=== PATIENT | male | born 1945 | race Caucasian/White ===

== ENCOUNTER 2020-08-14 15:15 | Inpatient (IN) | payer MEDICARE ==
[2020-08-14 16:27] LABS: #Basophils 0.1 10x3/uL (0.0-0.2); #Eosinphils 0.3 10x3/uL (0.0-0.5); #Monocytes 1.9 10x3/uL (0.0-1.1); #Neutrophils 9.1 10x3/uL (1.5-8.4); %Basophils 0.6 % (0.0-2.0); %Eosinophils 1.9 % (0.0-6.0); %Lymphocytes 19.4 % (18.0-47.0); %Monocytes 13.5 % (0.0-10.0); %Neutrophils 62.9 % (40.0-75.0); Hemoglobin 16.6 g/dL (13.5-17.5); Mean Corpuscular HGB CONC 32.7 g/dL (32.0-36.0); Mean Corpuscular Hemoglobin 31.5 pg (27.0-33.0); Mean Corpuscular Volume 96.2 fl (81.2-95.1); Mean Platelet Volume 10.6 fl (7.4-10.4); Platelet Count 283 10x3/uL (150-450); RBC Distribution Width 13.1 % (11.5-14.5); Red Blood Cell (RBC) Count 5.27 10x6/uL (4.32-5.72); White Blood Cell (WBC) Count 14.4 10x3/uL (3.5-10.5)
[2020-08-14 16:33] LABS: ALT (SGPT) 30 U/L (8-55); AST (SGOT) 20 U/L (5-34); Albumin 4.1 g/dL (3.4-4.8); Alkaline Phosphatase 63 U/L (40-110); Anion Gap 15 mmol/L (10-20); BUN (Urea Nitrogen) 44 mg/dL (8.4-25.7); Bilirubin, Total 1.6 mg/dL (0.2-1.2); Calc. Creatinine Clearance 0 mL/min (70-130); Calcium 9.2 mg/dL (7.8-10.44); Carbon Dioxide 26 mmol/L (23-31); Chloride 100 mmol/L (98-107); Globulin 2.4 g/dL (2.4-3.5); Glucose 82 mg/dL (83-110); Potassium 4.6 mmol/L (3.5-5.1); Protein, Total 6.5 g/dL (5.8-8.1); Sodium 136 mmol/L (136-145)
[2020-08-14 17:21] LABS: CKMB 3.8 ng/mL (0-6.6)
[2020-08-14 17:23] LABS: Bilirubin Neg (Negative); Blood, Urine Negative (Negative); Clarity Clear (Clear); Glucose, Urine (Dipstick) Normal (Negative); Ketone, Urine Negative (Negative); Leukocyte Negative (Negative); Nitrite Negative (Negative); Protein, Urine (Dipstick) Negative (Neg-Trace); Specific Gravity, Urine 1.015 (1.002-1.036); Urobilinogen Normal mg/dL (Less than 2)
[2020-08-14] MEDS ORDERED: Nitroglycerin 2% Ointment 1 INCH/1 GM Packet ONE (18:04)
[2020-08-14] MEDS ORDERED: Aspirin Chewable 81 MG TAB ONE (18:04)
[2020-08-14] MEDS ORDERED: Calcium Carbonate 500 MG ChewTAB PO PRN (20:26)
[2020-08-14] MEDS ORDERED: Ondansetron PF 4 MG/2 ML Vial IVP PRN (20:26)
[2020-08-14] MEDS ORDERED: Senokot S 8.6-50 MG TAB PO PRN (20:26)
[2020-08-14] MEDS ORDERED: Guaifenesin DM 100-10/5 ML UDCUP PO PRN (20:26)
[2020-08-14] MEDS ORDERED: Acetaminophen 325 MG TAB PO PRN (20:26)
[2020-08-14] MEDS ORDERED: ALPRAZolam 0.5 MG TAB PO PRN (20:30)
[2020-08-14] MEDS ORDERED: Sodium Chloride 0.9% 500 ML IV SCH (20:30)
[2020-08-14] MEDS ORDERED: tiZANidine HCl 4 MG TAB PO PRN (20:31)
[2020-08-14 23:00] LABS: CKMB 3.2 ng/mL (0-6.6)
[2020-08-15 04:30] VITALS: BMI 24.0
[2020-08-15 05:39] LABS: Anion Gap 15 mmol/L (10-20); BUN (Urea Nitrogen) 46 mg/dL (8.4-25.7); Calc. Creatinine Clearance 37 mL/min (70-130); Calcium 8.7 mg/dL (7.8-10.44); Carbon Dioxide 26 mmol/L (23-31); Cardiac Risk 3.6 (Less than 4.5); Chloride 103 mmol/L (98-107); Cholesterol 144 mg/dl (< 200 Desired); Glucose 104 mg/dL (83-110); HDL Cholesterol 40 mg/dL (>60 Neg Risk); LDL Cholesterol, Calculated 64 mg/dL; Potassium 5.3 mmol/L (3.5-5.1); Sodium 139 mmol/L (136-145); Triglycerides 201 mg/dL (Less than 150)
[2020-08-15 05:51] LABS: #Basophils 0.1 10x3/uL (0.0-0.2); #Eosinphils 0.2 10x3/uL (0.0-0.5); #Monocytes 1.6 10x3/uL (0.0-1.1); #Neutrophils 7.8 10x3/uL (1.5-8.4); %Basophils 0.7 % (0.0-2.0); %Eosinophils 1.9 % (0.0-6.0); %Lymphocytes 21.9 % (18.0-47.0); %Monocytes 12.3 % (0.0-10.0); %Neutrophils 61.4 % (40.0-75.0); Hemoglobin 15.8 g/dL (13.5-17.5); Mean Corpuscular HGB CONC 32.8 g/dL (32.0-36.0); Mean Corpuscular Hemoglobin 31.7 pg (27.0-33.0); Mean Corpuscular Volume 96.8 fl (81.2-95.1); Mean Platelet Volume 10.4 fl (7.4-10.4); Platelet Count 271 10x3/uL (150-450); RBC Distribution Width 13.2 % (11.5-14.5); Red Blood Cell (RBC) Count 4.98 10x6/uL (4.32-5.72); White Blood Cell (WBC) Count 12.8 10x3/uL (3.5-10.5)
[2020-08-15] MEDS: Atorvastatin Calcium 20 MG TAB PO SCH ×2 (05:54→21:21)
[2020-08-15 05:59] LABS: CKMB 2.8 ng/mL (0-6.6)
[2020-08-15] MEDS ORDERED: Loratadine 10 MG TAB PO PRN (07:44)
[2020-08-15] MEDS ORDERED: Loperamide HCl 2 MG CAP PO PRN (07:44)
[2020-08-15] MEDS ORDERED: GUAIFENESIN SF SOLN 200 MG/10 ML UDCUP PO PRN (07:44)
[2020-08-15] MEDS ORDERED: hydrALAZINE 20 MG/ML VIAL SLOW IVP PRN (07:44)
[2020-08-15] MEDS ORDERED: HYDROcodone/Acetaminophen 5/325 mg Tablet PO PRN (07:44)
[2020-08-15] MEDS ORDERED: Sodium Chloride 0.65% Nasal 44 ML BOT EA NARE PRN (07:44)
[2020-08-15] MEDS ORDERED: Cepastat Lozenges 1 LOZ PO PRN (07:44)
[2020-08-15] MEDS ORDERED: Benzonatate 100 MG CAP PO PRN (07:44)
[2020-08-15] MEDS: Carvedilol 6.25 MG TAB PO SCH ×3 (08:09→17:20)
[2020-08-15] MEDS: Enoxaparin Sodium 40 MG/0.4 ML SYRINGE SC SCH (08:10)
[2020-08-15] MEDS: Aspirin 81 mg Enteric Coated Tablet PO SCH (08:10)
[2020-08-15] MEDS: Clopidogrel Bisulfate 75 MG TAB PO SCH (08:10)
[2020-08-15] MEDS ORDERED: Lorazepam 2 MG/ML VIAL SLOW IVP SCH (08:15)
[2020-08-15] MEDS: Sodium Chloride 0.45% 1,000 ML IV SCH (12:11)
[2020-08-16] MEDS: Sodium Chloride 0.45% 1,000 ML IV SCH ×2 (00:36→09:31)
[2020-08-16 06:04] LABS: #Basophils 0.1 10x3/uL (0.0-0.2); #Eosinphils 0.3 10x3/uL (0.0-0.5); #Monocytes 1.5 10x3/uL (0.0-1.1); #Neutrophils 9.9 10x3/uL (1.5-8.4); %Basophils 0.4 % (0.0-2.0); %Eosinophils 1.9 % (0.0-6.0); %Lymphocytes 15.8 % (18.0-47.0); %Monocytes 10.6 % (0.0-10.0); %Neutrophils 70.2 % (40.0-75.0); Hemoglobin 15.2 g/dL (13.5-17.5); Mean Corpuscular HGB CONC 32.9 g/dL (32.0-36.0); Mean Corpuscular Hemoglobin 32.1 pg (27.0-33.0); Mean Corpuscular Volume 97.7 fl (81.2-95.1); Mean Platelet Volume 10.5 fl (7.4-10.4); Platelet Count 258 10x3/uL (150-450); RBC Distribution Width 13.4 % (11.5-14.5); Red Blood Cell (RBC) Count 4.73 10x6/uL (4.32-5.72)
[2020-08-16 06:25] LABS: ALT (SGPT) 22 U/L (8-55); AST (SGOT) 14 U/L (5-34); Albumin 3.3 g/dL (3.4-4.8); Alkaline Phosphatase 49 U/L (40-110); Anion Gap 9 mmol/L (10-20); BUN (Urea Nitrogen) 36 mg/dL (8.4-25.7); Bilirubin, Total 1.2 mg/dL (0.2-1.2); Calc. Creatinine Clearance 44 mL/min (70-130); Calcium 8.5 mg/dL (7.8-10.44); Carbon Dioxide 29 mmol/L (23-31); Chloride 107 mmol/L (98-107); Globulin 2.2 g/dL (2.4-3.5); Glucose 97 mg/dL (83-110); Potassium 4.5 mmol/L (3.5-5.1); Protein, Total 5.5 g/dL (5.8-8.1); Sodium 140 mmol/L (136-145)
[2020-08-16] MEDS: Clopidogrel Bisulfate 75 MG TAB PO SCH (09:30)
[2020-08-16] MEDS: Aspirin 81 mg Enteric Coated Tablet PO SCH (09:30)
[2020-08-16] MEDS: Carvedilol 6.25 MG TAB PO SCH ×2 (09:30→16:08)
[2020-08-16] MEDS: Enoxaparin Sodium 40 MG/0.4 ML SYRINGE SC SCH (09:31)
[2020-08-16] MEDS ORDERED: Lorazepam 2 MG/ML VIAL SLOW IVP SCH (12:15)
[2020-08-16] MEDS ORDERED: Lorazepam 2 MG/ML VIAL SLOW IVP PRN (12:45)
[2020-08-16] MEDS: Atorvastatin Calcium 20 MG TAB PO SCH (21:30)
[2020-08-17] MEDS: Sodium Chloride 0.45% 1,000 ML IV SCH (00:11)
[2020-08-17 05:38] LABS: #Eosinphils 0.2 10x3/uL (0.0-0.5); #Monocytes 1.4 10x3/uL (0.0-1.1); #Neutrophils 5.5 10x3/uL (1.5-8.4); %Basophils 0.4 % (0.0-2.0); %Eosinophils 2.5 % (0.0-6.0); %Lymphocytes 23.3 % (18.0-47.0); %Monocytes 14.6 % (0.0-10.0); %Neutrophils 58.2 % (40.0-75.0); Hemoglobin 14.7 g/dL (13.5-17.5); Mean Corpuscular HGB CONC 32.6 g/dL (32.0-36.0); Mean Corpuscular Hemoglobin 31.7 pg (27.0-33.0); Mean Corpuscular Volume 97.4 fl (81.2-95.1); Mean Platelet Volume 10.5 fl (7.4-10.4); Platelet Count 239 10x3/uL (150-450); RBC Distribution Width 13.4 % (11.5-14.5); Red Blood Cell (RBC) Count 4.63 10x6/uL (4.32-5.72); White Blood Cell (WBC) Count 9.4 10x3/uL (3.5-10.5)
[2020-08-17 05:46] LABS: Anion Gap 11 mmol/L (10-20); BUN (Urea Nitrogen) 23 mg/dL (8.4-25.7); Calc. Creatinine Clearance 53 mL/min (70-130); Carbon Dioxide 24 mmol/L (23-31); Chloride 108 mmol/L (98-107); Glucose 81 mg/dL (83-110); Potassium 4.3 mmol/L (3.5-5.1); Sodium 139 mmol/L (136-145)
[2020-08-17 06:01] LABS: Calcium 8.2 mg/dL (7.8-10.44)
[2020-08-17] MEDS: Enoxaparin Sodium 40 MG/0.4 ML SYRINGE SC SCH (10:54)
[2020-08-17] MEDS: Clopidogrel Bisulfate 75 MG TAB PO SCH (10:54)
[2020-08-17] MEDS: Carvedilol 6.25 MG TAB PO SCH ×2 (10:54→17:17)
[2020-08-17] MEDS: Aspirin 81 mg Enteric Coated Tablet PO SCH (10:54)
[2020-08-17] MEDS ORDERED: Sodium Chloride 0.45% 1,000 ML IV SCH (11:28)
[2020-08-17] MEDS: Atorvastatin Calcium 20 MG TAB PO SCH (22:16)
[2020-08-17] MEDS: Zolpidem Tartrate 5 MG TAB PO PRN ×2 (22:17→23:41)
[2020-08-18] MEDS: Zolpidem Tartrate 5 MG TAB PO PRN (02:41)
[2020-08-18 06:51] LABS: Anion Gap 12 mmol/L (10-20); BUN (Urea Nitrogen) 20 mg/dL (8.4-25.7); Calc. Creatinine Clearance 61 mL/min (70-130); Calcium 8.3 mg/dL (7.8-10.44); Carbon Dioxide 26 mmol/L (23-31); Chloride 106 mmol/L (98-107); Glucose 99 mg/dL (83-110); Potassium 4.5 mmol/L (3.5-5.1); Sodium 139 mmol/L (136-145)
[2020-08-18] MEDS: Clopidogrel Bisulfate 75 MG TAB PO SCH (08:06)
[2020-08-18] MEDS: Enoxaparin Sodium 40 MG/0.4 ML SYRINGE SC SCH (08:07)
[2020-08-18] MEDS: Aspirin 81 mg Enteric Coated Tablet PO SCH (08:07)
[2020-08-18] MEDS: Carvedilol 6.25 MG TAB PO SCH ×2 (08:08→17:32)
[2020-08-18] MEDS ORDERED: clonazePAM 0.5 MG TAB PO PRN (09:43)
[2020-08-19] MEDS: Atorvastatin Calcium 20 MG TAB PO SCH ×2 (01:26→20:25)
[2020-08-19 04:03] LABS: SARS-CoV-2 PCR by NAA Not Detected (NotDetected)
[2020-08-19 07:18] LABS: Anion Gap 11 mmol/L (10-20); BUN (Urea Nitrogen) 20 mg/dL (8.4-25.7); Calc. Creatinine Clearance 53 mL/min (70-130); Calcium 8.6 mg/dL (7.8-10.44); Carbon Dioxide 27 mmol/L (23-31); Chloride 105 mmol/L (98-107); Glucose 97 mg/dL (83-110); Potassium 4.3 mmol/L (3.5-5.1); Sodium 139 mmol/L (136-145)
[2020-08-19] MEDS: Aspirin 81 mg Enteric Coated Tablet PO SCH (08:24)
[2020-08-19] MEDS: Carvedilol 6.25 MG TAB PO SCH ×2 (08:24→17:06)
[2020-08-19] MEDS: Clopidogrel Bisulfate 75 MG TAB PO SCH (08:24)
[2020-08-19] MEDS: Enoxaparin Sodium 40 MG/0.4 ML SYRINGE SC SCH (08:25)
[2020-08-19] MEDS: Zolpidem Tartrate 5 MG TAB PO PRN (20:26)
[2020-08-20] MEDS: Enoxaparin Sodium 40 MG/0.4 ML SYRINGE SC SCH (10:30)
[2020-08-20] MEDS: Clopidogrel Bisulfate 75 MG TAB PO SCH (10:30)
[2020-08-20] MEDS: Aspirin 81 mg Enteric Coated Tablet PO SCH (10:30)
[2020-08-20] MEDS: Carvedilol 6.25 MG TAB PO SCH ×2 (10:37→16:40)
[2020-08-20 13:06] VITALS: TEMP 97.3
[2020-08-20 17:54] VITALS: BP 142/74
== END 2020-08-20 17:35 | disposition home health service (06) | DRG 57 ==
LOC: CSHERS 15:15 → CSHTELE 18:25 → UNDOADMOB 22:11 → INTOOBSV 22:11 → CSHTELE 22:11 → OBSVTOIN 08-15 18:21
PROVIDERS: ADMIT Student in an Organized Health Care Education/Training Program; ATTEND Family Medicine
DX: I69.351 Hemiplegia and hemiparesis following cerebral infarction affecting right dominant side (principal); N17.9 Acute kidney failure, unspecified; C92.11 Chronic myeloid leukemia, BCR/ABL-positive, in remission; F41.9 Anxiety disorder, unspecified; K21.9 Gastro-esophageal reflux disease without esophagitis; I25.10 Atherosclerotic heart disease of native coronary artery without angina pectoris; N18.31 Chronic kidney disease, stage 3a; E78.5 Hyperlipidemia, unspecified; I12.9 Hypertensive chronic kidney disease with stage 1 through stage 4 chronic kidney disease, or unspecified chronic kidney disease; Z79.82 Long term (current) use of aspirin; Z88.7 Allergy status to serum and vaccine; Z87.891 Personal history of nicotine dependence; M19.90 Unspecified osteoarthritis, unspecified site; Z20.822 Contact with and (suspected) exposure to COVID-19
CPT/HCPCS: 36415; 70450; 70496; 70498; 70551; 70552; 71045; 80048; 80053; 80061; 81003; 82553; 84484; 85025; 87635; 93005; 93306; 93880; 96372; 96374; G0378; J1650; J2060; U0003; U0005

== ENCOUNTER 2020-10-02 09:43 | Outpatient (CLI) | payer MEDICARE | END 2020-10-02 09:44 | disposition home or self-care (01) | LOC: CSHMRI 09:43 | PROVIDERS: ATTEND Family Medicine | DX: R53.1 Weakness (principal); M47.812 Spondylosis without myelopathy or radiculopathy, cervical region; Z98.890 Other specified postprocedural states | CPT/HCPCS: 72156; 82565 ==

== ENCOUNTER 2021-09-26 12:05 | Inpatient (IN) | payer MEDICARE ==
[~2021-09-26 12:05] MED LIST: Iopamidol 300 61% 100 ML VIAL FS ONE
[2021-09-26 14:06] LABS: #Basophils 0.1 10x3/uL (0.0-0.2); #Eosinphils 0.1 10x3/uL (0.0-0.5); #Monocytes 1.2 10x3/uL (0.0-1.1); #Neutrophils 8.8 10x3/uL (1.5-8.4); %Basophils 0.4 % (0.0-2.0); %Lymphocytes 22.2 % (18.0-47.0); %Monocytes 8.8 % (0.0-10.0); %Neutrophils 66.9 % (40.0-75.0); Hemoglobin 11.7 g/dL (13.5-17.5); Mean Corpuscular HGB CONC 33.8 g/dL (32.0-36.0); Mean Corpuscular Hemoglobin 32.3 pg (27.0-33.0); Mean Corpuscular Volume 95.6 fl (81.2-95.1); Platelet Count 298 10x3/uL (150-450); RBC Distribution Width 15.1 % (11.5-14.5); Red Blood Cell (RBC) Count 3.62 10x6/uL (4.32-5.72); White Blood Cell (WBC) Count 13.1 10x3/uL (3.5-10.5)
[2021-09-26 14:13] LABS: INR-International Normal Ratio 0.9; PTT 23.2 sec (22.0-33.0); Prothrombin Time 10.1 sec (9.5-12.1)
[2021-09-26 14:16] LABS: ALT (SGPT) 15 U/L (8-55); AST (SGOT) 16 U/L (5-34); Albumin 3.7 g/dL (3.4-4.8); Alkaline Phosphatase 67 U/L (40-110); Anion Gap 14 mmol/L (10-20); BUN (Urea Nitrogen) 35 mg/dL (8.4-25.7); Bilirubin, Total 0.6 mg/dL (0.2-1.2); Calc. Creatinine Clearance 0 mL/min (70-130); Calcium 8.8 mg/dL (7.8-10.44); Carbon Dioxide 22 mmol/L (23-31); Chloride 109 mmol/L (98-107); Globulin 2.1 g/dL (2.4-3.5); Glucose 172 mg/dL (83-110); Lipase 90 U/L (8-78); Protein, Total 5.8 g/dL (5.8-8.1); Sodium 141 mmol/L (136-145)
[2021-09-26 15:10] LABS: SARS-CoV-2 NAA Rapid Test Not Detected (NotDetected)
[2021-09-26] MEDS ORDERED: Nitroglycerin 0.4 MG TAB (25 Tab Bottle) SL PRN (16:02)
[2021-09-26] MEDS ORDERED: Albuterol Sulfate 2.5 mg/3 ml Neb NEB PRN (16:02)
[2021-09-26] MEDS ORDERED: Ondansetron PF 4 MG/2 ML Vial IVP PRN (16:03)
[2021-09-26] MEDS ORDERED: Polyethylene Glycol 3350 17 GM Packet PO SCH (16:15)
[2021-09-26] MEDS ORDERED: Aspirin Chewable 81 MG TAB ONE (16:21)
[2021-09-26] MEDS: Carvedilol 12.5 MG TAB PO SCH (18:33)
[2021-09-26 19:12] VITALS: BMI 26.2
[2021-09-26] MEDS ORDERED: Melatonin 3 MG TAB PO SCH (21:00)
[2021-09-26] MEDS: Lisinopril 10 MG TAB PO SCH (21:07)
[2021-09-26] MEDS: Rosuvastatin 20 MG TAB PO SCH (21:07)
[2021-09-26] MEDS: Docusate 100 MG CAP PO SCH (21:07)
[2021-09-26] MEDS: Tamsulosin HCl 0.4 MG CAP PO SCH (21:07)
[2021-09-26] MEDS: Mirtazapine 15 MG TAB PO SCH (21:08)
[2021-09-27 00:25] LABS: Troponin I 0.014 ng/mL (< 0.028)
[2021-09-27 03:48] LABS: #Basophils 0.1 10x3/uL (0.0-0.2); #Eosinphils 0.3 10x3/uL (0.0-0.5); #Monocytes 1.4 10x3/uL (0.0-1.1); #Neutrophils 7.3 10x3/uL (1.5-8.4); %Basophils 0.6 % (0.0-2.0); %Eosinophils 2.4 % (0.0-6.0); %Lymphocytes 28.6 % (18.0-47.0); %Monocytes 10.7 % (0.0-10.0); Hemoglobin 10.4 g/dL (13.5-17.5); Mean Corpuscular HGB CONC 34.2 g/dL (32.0-36.0); Mean Corpuscular Hemoglobin 32.3 pg (27.0-33.0); Mean Corpuscular Volume 94.4 fl (81.2-95.1); Mean Platelet Volume 11.1 fl (7.4-10.4); Platelet Count 273 10x3/uL (150-450); RBC Distribution Width 15.4 % (11.5-14.5); Red Blood Cell (RBC) Count 3.22 10x6/uL (4.32-5.72); White Blood Cell (WBC) Count 12.8 10x3/uL (3.5-10.5)
[2021-09-27 03:51] LABS: Anion Gap 15 mmol/L (10-20); BUN (Urea Nitrogen) 46 mg/dL (8.4-25.7); Calc. Creatinine Clearance 48 mL/min (70-130); Calcium 8.8 mg/dL (7.8-10.44); Carbon Dioxide 22 mmol/L (23-31); Chloride 109 mmol/L (98-107); Glucose 78 mg/dL (83-110); Potassium 4.4 mmol/L (3.5-5.1); Sodium 142 mmol/L (136-145)
[2021-09-27] MEDS ORDERED: Lorazepam 2 MG/ML VIAL SLOW IVP SCH (08:00)
[2021-09-27] MEDS ORDERED: Polyethylene Glycol 3350 17 GM Packet PO SCH (09:00)
[2021-09-27] MEDS: Docusate 100 MG CAP PO SCH ×2 (09:26→22:00)
[2021-09-27] MEDS: Clopidogrel Bisulfate 75 MG TAB PO SCH (09:26)
[2021-09-27] MEDS: Multivit, Therapeutic 1 TAB PO SCH (09:26)
[2021-09-27] MEDS: Aspirin 81 mg Enteric Coated Tablet PO SCH (09:26)
[2021-09-27] MEDS: Lisinopril 10 MG TAB PO SCH ×2 (09:31→22:00)
[2021-09-27] MEDS: Carvedilol 12.5 MG TAB PO SCH ×2 (09:31→16:53)
[2021-09-27] MEDS ORDERED: Glycerin Adult Supp. (24 ct jar) PR SCH (12:15)
[2021-09-27] MEDS: Hydrochlorothiazide 25 MG TAB PO SCH (13:47)
[2021-09-27] MEDS: Spironolactone 25 MG TAB PO SCH (13:47)
[2021-09-27] MEDS ORDERED: Polyethylene Glycol 3350 17 GM Packet PO PRN (16:31)
[2021-09-27] MEDS ORDERED: Glycerin Adult Supp. (24 ct jar) PR PRN (16:32)
[2021-09-27] MEDS: Polyethylene Glycol 3350 17 GM Packet PO SCH (22:00)
[2021-09-27] MEDS: Mirtazapine 15 MG TAB PO SCH (22:00)
[2021-09-27] MEDS: Rosuvastatin 20 MG TAB PO SCH (22:00)
[2021-09-27] MEDS: Tamsulosin HCl 0.4 MG CAP PO SCH (22:30)
[2021-09-28] MEDS: Multivit, Therapeutic 1 TAB PO SCH (08:45)
[2021-09-28] MEDS: Carvedilol 12.5 MG TAB PO SCH ×2 (08:45→17:47)
[2021-09-28] MEDS: Docusate 100 MG CAP PO SCH ×2 (08:45→22:10)
[2021-09-28] MEDS: Aspirin 81 mg Enteric Coated Tablet PO SCH (08:45)
[2021-09-28] MEDS: Clopidogrel Bisulfate 75 MG TAB PO SCH (08:46)
[2021-09-28] MEDS: Lisinopril 10 MG TAB PO SCH ×2 (08:48→22:18)
[2021-09-28] MEDS: Polyethylene Glycol 3350 17 GM Packet PO SCH ×2 (08:49→22:17)
[2021-09-28] MEDS: Spironolactone 25 MG TAB PO SCH (13:17)
[2021-09-28] MEDS: Hydrochlorothiazide 25 MG TAB PO SCH (13:20)
[2021-09-28] MEDS ORDERED: Glycerin Adult Supp. (24 ct jar) PR SCH (17:30)
[2021-09-28] MEDS ORDERED: Fleet Enema 133 ML BOT PR SCH (19:30)
[2021-09-28] MEDS: Rosuvastatin 20 MG TAB PO SCH (22:10)
[2021-09-28] MEDS: Tamsulosin HCl 0.4 MG CAP PO SCH (22:10)
[2021-09-28] MEDS: Mirtazapine 15 MG TAB PO SCH (22:11)
[2021-09-28] MEDS: Acetaminophen 325 MG TAB PO PRN (22:50)
[2021-09-29] MEDS: Carvedilol 12.5 MG TAB PO SCH ×2 (08:42→17:05)
[2021-09-29] MEDS: Multivit, Therapeutic 1 TAB PO SCH (08:42)
[2021-09-29] MEDS: Lisinopril 10 MG TAB PO SCH ×2 (08:42→22:16)
[2021-09-29] MEDS: Polyethylene Glycol 3350 17 GM Packet PO SCH ×2 (08:42→22:02)
[2021-09-29] MEDS: Aspirin 81 mg Enteric Coated Tablet PO SCH (08:42)
[2021-09-29] MEDS: Glycerin Adult Supp. (24 ct jar) PR SCH ×3 (08:42→22:01)
[2021-09-29] MEDS: Clopidogrel Bisulfate 75 MG TAB PO SCH (08:42)
[2021-09-29] MEDS: Docusate 100 MG CAP PO SCH ×2 (08:42→22:16)
[2021-09-29] MEDS: Spironolactone 25 MG TAB PO SCH (11:59)
[2021-09-29] MEDS: Hydrochlorothiazide 25 MG TAB PO SCH (12:00)
[2021-09-29] MEDS: Rosuvastatin 20 MG TAB PO SCH (22:15)
[2021-09-29] MEDS: Mirtazapine 15 MG TAB PO SCH (22:16)
[2021-09-29] MEDS: Tamsulosin HCl 0.4 MG CAP PO SCH (22:16)
[2021-09-30] MEDS: Clopidogrel Bisulfate 75 MG TAB PO SCH (09:32)
[2021-09-30] MEDS: Glycerin Adult Supp. (24 ct jar) PR SCH ×3 (09:32→21:20)
[2021-09-30] MEDS: Aspirin 81 mg Enteric Coated Tablet PO SCH (09:32)
[2021-09-30] MEDS: Lisinopril 10 MG TAB PO SCH ×2 (09:32→21:20)
[2021-09-30] MEDS: Carvedilol 12.5 MG TAB PO SCH ×2 (09:32→16:48)
[2021-09-30] MEDS: Multivit, Therapeutic 1 TAB PO SCH (09:32)
[2021-09-30] MEDS: Docusate 100 MG CAP PO SCH ×2 (09:32→21:18)
[2021-09-30] MEDS: Polyethylene Glycol 3350 17 GM Packet PO SCH ×2 (09:45→21:19)
[2021-09-30] MEDS: Spironolactone 25 MG TAB PO SCH (12:20)
[2021-09-30] MEDS: Hydrochlorothiazide 25 MG TAB PO SCH (12:20)
[2021-09-30] MEDS: Rosuvastatin 20 MG TAB PO SCH (21:21)
[2021-09-30] MEDS: Mirtazapine 15 MG TAB PO SCH (21:21)
[2021-09-30] MEDS: Tamsulosin HCl 0.4 MG CAP PO SCH (21:21)
[2021-10-01] MEDS: Acetaminophen 325 MG TAB PO PRN (00:23)
[2021-10-01] MEDS: Carvedilol 12.5 MG TAB PO SCH (09:04)
[2021-10-01] MEDS: Docusate 100 MG CAP PO SCH (09:04)
[2021-10-01] MEDS: Lisinopril 10 MG TAB PO SCH (09:04)
[2021-10-01] MEDS: Polyethylene Glycol 3350 17 GM Packet PO SCH (09:04)
[2021-10-01] MEDS: Aspirin 81 mg Enteric Coated Tablet PO SCH (09:04)
[2021-10-01] MEDS: Multivit, Therapeutic 1 TAB PO SCH (09:05)
[2021-10-01] MEDS: Clopidogrel Bisulfate 75 MG TAB PO SCH (09:05)
[2021-10-01] MEDS: Glycerin Adult Supp. (24 ct jar) PR SCH ×2 (09:05→16:46)
[2021-10-01] MEDS: Hydrochlorothiazide 25 MG TAB PO SCH (13:21)
[2021-10-01] MEDS: Spironolactone 25 MG TAB PO SCH (13:21)
[2021-10-01 13:29] VITALS: TEMP 97.2
[2021-10-01] MEDS ORDERED: Cyclobenzaprine 10 MG TAB PO PRN (14:09)
[2021-10-01 16:00] VITALS: BP 110/65
== END 2021-10-01 18:08 | disposition home or self-care (01) | DRG 392 ==
LOC: CSHERS 12:05 → CSHTELE 16:27 → OBSVTOIN 09-27 12:02
PROVIDERS: ADMIT Hospitalist; ATTEND Hospitalist
DX: K59.00 Constipation, unspecified (principal); J98.11 Atelectasis; I69.354 Hemiplegia and hemiparesis following cerebral infarction affecting left non-dominant side; C95.91 Leukemia, unspecified, in remission; R07.9 Chest pain, unspecified; Z20.822 Contact with and (suspected) exposure to COVID-19; R33.9 Retention of urine, unspecified; I10 Essential (primary) hypertension; I25.10 Atherosclerotic heart disease of native coronary artery without angina pectoris; G52.8 Disorders of other specified cranial nerves; I73.9 Peripheral vascular disease, unspecified; E78.5 Hyperlipidemia, unspecified; R29.810 Facial weakness; Z88.7 Allergy status to serum and vaccine; Z79.899 Other long term (current) drug therapy; Z79.02 Long term (current) use of antithrombotics/antiplatelets; Z79.82 Long term (current) use of aspirin; Z90.5 Acquired absence of kidney; Z87.891 Personal history of nicotine dependence
CPT/HCPCS: 36415; 70450; 70551; 71045; 74177; 80048; 80053; 83690; 83880; 84484; 85025; 85610; 85730; 86850; 86900; 86901; 93005; 93010; 93306; 93880; J2060; Q9967; U0002